=== PATIENT | male | born 1975 | race Caucasian/White ===

== ENCOUNTER 2022-04-15 15:29 | Emergency (ER) | payer OTHER, SELFPAY ==
--- NOTE | ~2022-04-15 | CT_ITS ---
EXAMINATION: CT abdomen pelvis w con DATE: 04/15/2022 18:00 INDICATION: Nausea and vomiting TECHNIQUE: Computed tomography (CT) of the abdomen and pelvis was performed with 100 cc Omnipaque 350 intravenous contrast. The dose-length product was 1316.48 mGy-cm. Automated exposure control and ite rative reconstruction technique were employed. COMPARISON: None. FINDINGS: Lung bases are unremarkable. Heart size normal. No significant pleural or pericardial effus ion. Fatty infiltration of the liver. The spleen, pancreas, adrenal glands and left kidney are unremarkabl e. There is a right renal cyst. There is enhancing gallbladder wall with trace pericholecystic fluid and surrounding pericholecystic infiltration, suspicious for cholecystitis. Small amount of fluid in the right paracolic gutter and pelvis. Nonobstructive bowel gas pattern. No free air or free fluid. N o lymphadenopathy. There is mild mesenteric edema. IMPRESSION: 1. Gallbladder distention with enhancing gallbladder wall and pericholecystic fluid with mild pericho lecystic fatty infiltration. This constellation of findings is suspicious for acute cholecystitis. 2: Small amount of ascites. 3: Fatty infiltration of the liver. Reviewed, dictated and finalized at location A. IMPRESSION: 1. Gallbladder distention with enhancing gallbladder wall and pericholecystic f luid with mild pericholecystic fatty infiltration. This constellation of findin gs is suspicious for acute cholecystitis. 2: Small amount of ascites. 3: Fatty infiltration of the liver.
--- NOTE | ~2022-04-15 | XR_ITS ---
EXAMINATION: XR chest 2V 04/15/2022 16:00 INDICATION: Shortness of breath and weakness. Chest pain. PROCEDURE: 2 view chest COMPARISON: 05/01/2019 FINDINGS: The lungs are clear. The cardiomediastinal silhouette is within normal limits. There are no pleural effusions. There is no pneumothorax suspected. IMPRESSION: 1: NO ACUTE CARDIOPULMONARY DISEASE. Reviewed, dictated and finalized at location A.
[2022-04-15 15:31] VITALS: BP 129/76; PULSE 93; RESP 18; TEMP 36.4; O2SAT 100
--- NOTE | 2022-04-15 15:34 | ECG_ITS ---
Measurements Intervals [place] Rate: 89 P: 45 NE: 143 QRS: -75 QRSD: 102 T: 7 QT: 380 QTc: 464 Interpretive Statements SINUS RHYTHM RSR' V1 INDETERMINATE AXIS PATTERN CONSISTENT WITH PULMONARY DISEASE BORDERLINE ECG NO PREVIOUS ECG AVAILABLE FOR COMPARISON Electronically Signed On 04-16-2022 14:27:59 CDT by Jordon León M.D.
[2022-04-15 15:52] LABS: Basophils Percent Auto 0.3 % (0.2-1.2); Eosinophils Percent Auto 0.1 % (0-4.4); Hematocrit 36.4 % (42.0-52.0); Hemoglobin 12.8 g/dL (14.0-18.0); Immature Granulocyte Absolute 0.04 K/mm3 (0.00-0.031); Immature Granulocyte Percent A 0.4 % (0-0.5); Lymphocytes Absolute Auto 0.89 K/mm3 (0.9-3.2); Lymphocytes Percent Auto 8.4 % (18.3-44.2); Mean Corpuscular HGB Conc 35.2 g/dl (32-36); Mean Corpuscular Hemoglobin 33.5 pg (26-34); Mean Corpuscular Volume 95.3 fl (80-100); Mean Platelet Volume 8.8 fl (7.4-10.4); Monocytes Percent Auto 9.8 % (2.6-8.5); Neutrophils Absolute Auto 8.6 K/mm3 (1.3-6.7); Nucleated Red Blood Cells Absolute Auto 0.1 K/mm3 (0.0-0.012); Nucleated Red Blood Cells Perc 0.6 % (0.0-0.2); Platelet Count Result 328 k/mm3 (150-375); Red Blood Count 3.82 M/mm3 (4.6-6.20); Red Cell Distribution Width 16.9 % (11.5-14.5); White Blood Count 10.6 K/mm3 (4.5-10.0)
[2022-04-15 16:13] LABS: Alanine Aminotransferase 104 U/L (6-50); Albumin Level 4.6 g/dL (3.5-5.1); Alkaline Phosphatase 114 U/L (38-126); Anion Gap 16 mmol/L (8-16); Aspartate Amino Transferase 200 U/L (17-59); Bilirubin,Total 2.3 mg/dL (0.2-1.3); Blood Urea Nitrogen 17 mg/dL (9-20); Calcium 9.6 mg/dL (8.4-10.2); Carbon Dioxide 18 mmol/L (22-30); Chloride 82 mmol/L (98-107); Estimated CRCL calculation 75 ml/min; Estimated Glomerular Filt Rate 60; Glucose 172 mg/dL (65-110); Potassium 4.8 mmol/L (3.4-5.0); Sodium 116 mmol/L (137-145)
[2022-04-15 16:52] VITALS: O2SAT 98; O2SAT 99
--- NOTE | 2022-04-15 17:09 | ED.SOB ---
HPI - SOB/Dyspnea General Chief Complaint: Shortness of Breath/Dyspnea Stated Complaint: SOB Time Seen by Provider: 04/15/22 16:52 History of Present Illness HPI Narrative: This is a 47-year-old male with past medical history of squamous cell carcinoma of the head and neck, presenting the emergency department complaining of persistent fatigue and nausea vomiting. He states for the past couple of days he has had multiple episodes of vomiting this with both food and fluids. He denies fevers. He complains of bandlike pain across the upper abdomen, described as cramping, 3 out of 10, not radiating. Related Data Allergies Allergy/AdvReac Type Severity Reaction Status Date / Time No Known Allergies Allergy Unverified 04/15/22 16:54 Review of Systems Review of Systems: CONSTITUTIONAL: Denies fever, chills, or sweats. Diffuse weakness EYES: Denies visual changes, redness, or discharge. ENT: Denies rhinorrhea, congestion, sore throat, or otalgia. CARDIOVASCULAR: Denies chest pain, palpitations, or edema. RESPIRATORY: Denies cough or dyspnea. GASTROINTESTINAL: mild abdominal pain, nausea and vomiting, Denies diarrhea GENITOURINARY: Denies dysuria or hematuria. SKIN: Denies rash or itching. MUSCULOSKELETAL: Denies back pain, joint pain, or myalgia. NEUROLOGIC: Denies headache, numbness, dizziness, or weakness. PSYCHIATRIC: Denies anxiety or depression. Course Course Emergency Course: 17:45 - Patient's sodium 116. Prior labs are not available for comparison. Discussed recommendation for admission for gradual sodium correction and evaluation for bowel obstruction. The patient is politely adamant that he will not stay. He states he has been hyponatremic in the past and understands the risk of , coma and arrhythmia. Will obtain CT to evaluate for bowel obstruction and advised patient further. 18:20 - CT is concerning for acute cholecystitis. There is no changes concerning for obstructive process. Repeat examination is negative for Weiss's sign. Discussed findings with the patient. He agrees to IV fluids but refuses to stay. Discussed return emergency precautions including signs/symptoms concerning for severe hyponatremia, ascending cholangitis, and sepsis. Patient voiced understanding and is comfortable with the plan. All questions answered to his satisfaction. Vital Signs Vital signs: Vital Signs Temperature 97.5 F L 04/15/22 15:31 Pulse Rate 93 04/15/22 15:31 Respiratory Rate 18 04/15/22 15:31 Blood Pressure 129/76 04/15/22 15:31 Pulse Oximetry 100 04/15/22 15:31 Oxygen Delivery Room Air 04/15/22 15:31 Temperature 97.5 F L 04/15/22 15:31 Pulse Rate 88 04/15/22 19:29 Respiratory Rate 18 04/15/22 19:29 Blood Pressure 104/71 04/15/22 19:29 Pulse Oximetry 99 04/15/22 19:29 Oxygen Delivery Room Air 04/15/22 16:52 MDM - SOB/Dyspnea MDM Narrative Medical decision making narrative: Plan: Labs, IV fluids, imaging, reassess Differential Diagnosis Differential diagnosis: Likely other (Metabolic abnormality, bowel obstruction, pancreatitis, cholecystitis, other) Lab Data Result diagrams: 04/15/22 15:44 04/15/22 15:44 Labs: Lab Results 04/15/22 04/15/22 04/15/22 Range/Units 15:44 15:44 15:44 WBC 10.6 H (4.5-10.0) K/mm3 RBC 3.82 L (4.6-6.20) M/mm3 Hgb 12.8 L (14.0-18.0) g/dL Hct 36.4 L (42.0-52.0) % MCV 95.3 (80-100) fl MCH 33.5 (26-34) pg MCHC 35.2 (32-36) g/dl RDW 16.9 H (11.5-14.5) % Plt Count 328 (150-375) k/mm3 MPV 8.8 (7.4-10.4) fl Immature Gran % (Auto) 0.4 (0-0.5) % Neut % (Auto) 81.0 H (45.5-73.1) % Lymph % (Auto) 8.4 L (18.3-44.2) % [place] % (Auto) 9.8 H (2.6-8.5) % Eos % (Auto) 0.1 (0-4.4) % Baso % (Auto) 0.3 (0.2-1.2) % Lymph # (Auto) 0.89 L (0.9-3.2) K/mm3 [place] # (Auto) 1.0 H (0.1-0.6) K/mm3 Eos # (Auto) 0.0 (0-0.3) K/mm3 Baso # (Auto) 0.0
[2022-04-15] MEDS: SODIUM CHLORIDE 0.9% IV 1,000 ML 999 ML IV CONT (18:33)
[2022-04-15 18:35] VITALS: BP 111/65; PULSE 89; RESP 18; O2SAT 98
[2022-04-15 18:54] LABS: Lipase 371 U/L (23-300)
[2022-04-15 19:29] VITALS: BP 104/71; PULSE 88; RESP 18; O2SAT 99
== END 2022-04-15 20:00 | disposition home or self-care (01) ==
PROVIDERS: Emergency Medicine; Emergency Provider Preventive Medicine Aerospace Medicine; PCP Internal Medicine
DX: E87.1 Hypo-osmolality and hyponatremia (principal); R11.10 Vomiting, unspecified; R10.9 Unspecified abdominal pain; R94.31 Abnormal electrocardiogram [ECG] [EKG]; K76.0 Fatty (change of) liver, not elsewhere classified; R93.2 Abnormal findings on diagnostic imaging of liver and biliary tract
CPT/HCPCS: 36415; 71046; 74177; 80053; 83690; 85025; 93005; 96360; 99284; J7030; Q9967

== ENCOUNTER 2022-04-16 20:05 | Inpatient (IN) | payer OTHER, SELFPAY ==
[2022-04-16] VITALS (7 sets, daily range): BP systolic 90–128; BP diastolic 58–71; PULSE 83–88; RESP 16–24; TEMP 36.7; O2SAT 95–100
--- NOTE | ~2022-04-16 | MR_ITS ---
EXAMINATION: MR MRCP wo/w con/w 3D wo ind DATE: 04/17/2022 12:23 INDICATION: Elevated liver function tests TECHNIQUE: Magnetic resonance imaging (MRI) of the abdomen was performed without intravenous contrast . Patient was unable to tolerate the postcontrast or MRCP sequences. Sequences included axial coronal T2-weighted SS-FSE ARC, coronal T2-weighted 2D FS FIESTA, Water:Coronal LAVA-Flex, axial 3D DualEcho , axial DWI B=600 , Axial SSFSE-IR COMPARISON: CT, 04/15/2022 CONTRAST: None FINDINGS: ABDOMEN MRI: There is loss of hepatic parenchymal signal on opposed phase imaging, consistent with he patic steatosis. The gallbladder is distended and contains multiple stones. There is mild wall thicke demarco of the gallbladder now small amount of pericholecystic fluid. The spleen, pancreas, and adrenal glands are normal. Cysts of the kidneys measure up to 4.4 cm on the right. No pathologically enlarged abdominal lymph nodes are identified. There are no dilated loops of bowel. No intrahepatic or extrah epatic biliary dilatation is seen. There is no definite stone or stricture of the common bile duct. T he pancreatic duct appears normal in course and caliber. ABDOMEN MRCP: Not performed due to patient condition. IMPRESSION: 1. Findings consistent with acute cholecystitis. No intrahepatic or extrahepatic biliary dilatation, stone, or stricture identified although sensitivity limited by incomplete examination. Reviewed, dictated and finalized at location A. IMPRESSION: 1. Findings consistent with acute cholecystitis. No intrahepatic or extrahepati c biliary dilatation, stone, or stricture identified although sensitivity limit ed by incomplete examination.
--- NOTE | ~2022-04-16 | XR_ITS ---
XR abdomen NG/feed tube insert INDICATION: Evaluate NG tube position. TECHNIQUE: Limited KUB perform for evaluating NG tube . COMPARISON: No prior studies for comparison. FINDINGS: NG tube tip in the stomach. Visualized bowel gas pattern is unremarkable. IMPRESSION: 1: NG tube tip in the stomach. Reviewed, dictated and finalized at location B.
--- NOTE | ~2022-04-16 | US_ITS ---
EXAMINATION: US perc cholecystostomy w imag DATE: 04/18/2022 17:53 INDICATION: Acute cholecystitis. TECHNIQUE: The procedure including the risks, benefits, and alternatives was discussed with the patie nt's . Risks discussed included bleeding and infection. Oral and written consent were obtained. A timeout was performed to verify the patient's name, date of , and procedure to be performed. The skin overlying the liver and gallbladder was prepped and draped in usual sterile fashion. Anest hetic was administered with 1% lidocaine subcutaneously. An 8.5 Fr catheter was inserted through akiko er parenchyma into the gallbladder by trocar technique. The metal stiffener and trocar needle were re moved, and the pigtail tip was locked. Bile was aspirated and sent for culture. The catheter was stit ched to the skin with suture. There were no immediate complications. FINDINGS: Ultrasound images demonstrate the catheter within the gallbladder. 3 mL bile was aspirated. IMPRESSION: 1. Successful ultrasound-guided cholecystostomy tube placement. 2. 3 mL bile was sent for aerobic and anaerobic cultures. 3. A catheter cholangiogram may be performed not less than 48 hours after tube placement if clinicall y indicated to assess cystic duct patency. If cholecystectomy is not eventually performed and the inf ectious episode has resolved, the tube may be removed over a guidewire, preferably not less than 3 we eks after placement to allow time for a mature catheter tract to form to prevent bile leakage and per itonitis. Reviewed, dictated and finalized at location A. IMPRESSION: 1. Successful ultrasound-guided cholecystostomy tube placement. 2. 3 mL bile was sent for aerobic and anaerobic cultures. 3. A catheter cholangiogram may be performed not less than 48 hours after tube placement if clinically indicated to assess cystic duct patency. If cholecystec elizabeth is not eventually performed and the infectious episode has resolved, the t ube may be removed over a guidewire, preferably not less than 3 weeks after matthew cement to allow time for a mature catheter tract to form to prevent bile leakag e and peritonitis.
--- NOTE | ~2022-04-16 | XR_ITS ---
EXAMINATION: XR abdomen/kub 1V DATE: 04/18/2022 17:23 INDICATION: Acute cholecystitis. TECHNIQUE: A supine view of the abdomen was obtained. COMPARISON: CT abdomen and pelvis 04/15/2022 FINDINGS: The lower abdomen is excluded. There are no dilated loops of bowel. There is a pigtail cath eter in the gallbladder. Contrast injected into the pigtail catheter opacifies the gallbladder, which shows filling defects, consistent with gallstones. The nasogastric tube tip is in the stomach. IMPRESSION: 1. Percutaneous cholecystostomy tube in expected position. 2. Cholelithiasis. Reviewed, dictated and finalized at location A.
--- NOTE | ~2022-04-16 | XR_ITS ---
EXAMINATION: XR chest 1V portable DATE: 04/19/2022 05:58 INDICATION: Respiratory failure TECHNIQUE: AP view of the chest was obtained.. COMPARISON: Chest radiograph dated 04/18/2022 FINDINGS: Endotracheal tube tip 4 cm above the marcell. Nasogastric tube and some injected oral contrast materia l within the stomach. Increased airspace opacities in the bilateral lower lung zones, left greater than right. Possible sma ll bilateral pleural effusions. No pneumothorax. The cardiomediastinal silhouette is normal. 2 clips at the base of the neck. IMPRESSION: 1. Increasing opacities at the bilateral lower lung zones, left greater than right which could repres ent atelectasis and/or pneumonia possibly with small pleural effusions. Reviewed, dictated and finalized at location A. IMPRESSION: 1. Increasing opacities at the bilateral lower lung zones, left greater than ri ght which could represent atelectasis and/or pneumonia possibly with small pleu ral effusions.
--- NOTE | ~2022-04-16 | XR_ITS ---
XR chest ET placement 04/18/2022 15:57 Indication: Respiratory distress Procedure: AP portable chest Comparison: Comparison to multiple prior studies sequentially, with oldest reviewed study dated 02/2017. Findings: Endotracheal tube tip 4.3 cm above the marcell. Heart size normal. Diffuse bilateral airspac e disease. No pleural effusion or pneumothorax. NG tube in the stomach. Impression: 1: Diffuse bilateral airspace disease may represent edema or pneumonia. Reviewed, dictated and finalized at location B. Impression: 1: Diffuse bilateral airspace disease may represent edema or pneumonia.
--- NOTE | 2022-04-16 20:20 | ED.RECABL ---
HPI - Recheck/Abnormal Lab/Rx General Chief Complaint: Recheck/Abnormal Lab/Rx Stated Complaint: dehydration Time Seen by Provider: 04/16/22 20:15 History of Present Illness HPI narrative: This is a 47-year-old male, who returns to the emergency department with continued vomiting. He was here yesterday found to be hyponatremic to 116. He states he has had a bowel movement and vomited once today without blood. He still complains of generalized weakness without visual change/loss or focal weakness. He continues to deny abdominal pain. Related Data Home Medications Medication Instructions Recorded Confirmed albuterol sulfate 90 mcg/actuation inhalation 04/16/22 aerosol inhaler atenolol 25 mg tablet mg 04/16/22 buspirone 15 mg tablet mg PRN Anxiety 04/16/22 04/16/22 gabapentin 100 mg capsule mg 04/16/22 oxycodone 5 mg tablet mg 04/16/22 sildenafil (pulm.hypertension) 20 mg PRN Sexual Activity 04/16/22 04/16/22 mg tablet Allergies Allergy/AdvReac Type Severity Reaction Status Date / Time No Known Allergies Allergy Verified 04/16/22 20:16 Review of Systems Review of Systems: CONSTITUTIONAL: Denies fever, chills, or sweats. EYES: Denies visual changes, redness, or discharge. ENT: Denies rhinorrhea, congestion, sore throat, or otalgia. CARDIOVASCULAR: Denies chest pain, palpitations, or edema. RESPIRATORY: Denies cough or dyspnea. GASTROINTESTINAL: vomiting Denies abdominal pain, nausea, or diarrhea. GENITOURINARY: Denies dysuria or hematuria. SKIN: Denies rash or itching. MUSCULOSKELETAL: Denies back pain, joint pain, or myalgia. NEUROLOGIC: Denies headache, numbness, dizziness, or weakness. PSYCHIATRIC: Denies anxiety or depression. Exam Narrative: GENERAL: Well-developed, well-nourished, appears uncomfortable HEAD: Normocephalic, atraumatic. EYES: PERRLA and EOMI. ENT: Nares clear, no rhinorrhea or epistaxis. Mucous membranes dry. Oropharynx without tonsillar hypertrophy exudate or other lesions. NECK: Supple. No adenopathy or masses. No carotid bruits or JVD CHEST: Clear to auscultation. No respiratory distress. No wheezes rales or rhonchi HEART: Regular rate and rhythm. No murmur heard. Normal peripheral pulses. ABDOMEN: Soft, nontender, nondistended, normal active bowel sounds. EXTREMITIES: Normal range of motion. No edema. SKIN: Warm, dry, no rash. NEURO: No focal deficits. Alert and oriented x3. PSYCH: Normal mood and affect. Course Course Emergency Course: 21:25 - Patient's serum sodium 114. Considering his ongoing vomiting I suspect severe hyponatremia. Will treat with a 150mL bolus of 3% saline. Will discuss patient with second officer and hospitalist for admission. 22:18 - Discussed patient with second officer, Dr. Haro who recommended nephrology consult and admission to IM U. Discussed patient with Dr. Hall, who recommends BMP at midnight with holding of additional fluids until repeat sodium in available. 22:20 - Discussed patient with Dr. Callahan who accepts admission to IMU. Vital Signs Vital signs: Vital Signs Temperature 98.1 F 04/16/22 20:06 Pulse Rate 88 04/16/22 20:06 Respiratory Rate 16 04/16/22 20:06 Blood Pressure 128/71 04/16/22 20:06 Pulse Oximetry 96 04/16/22 20:06 Temperature 98.1 F 04/16/22 20:06 Pulse Rate 83 04/16/22 22:33 Respiratory Rate 22 H 04/16/22 22:33 Blood Pressure 90/58 L 04/16/22 22:33 Pulse Oximetry 97 04/16/22 22:33 MDM - Recheck/Abnormal Lab/Rx MDM Narrative Medical decision making narrative: Plan: Labs, hypertonic saline, anticipate admission to ICU Differential Diagnosis Differential diagnosis: Likely other (Hyponatremia, metabolic abnormality, LELSY, other) Lab Data Result diagrams: 04/16/22 20:22 04/16/22 20:22 Labs: Lab Results 04/16/22 04/16/22 Range/Units 20:22 20:22 WBC 12.2 H (4.5-10.0) K/mm3 RBC 3.79 L (4.6-6.20) M/mm3 Hgb 12.6 L (14.0-18.0) g/dL Hct
[2022-04-16 20:29] LABS: Basophils Percent Auto 0.2 % (0.2-1.2); Hematocrit 36.3 % (42.0-52.0); Hemoglobin 12.6 g/dL (14.0-18.0); Immature Granulocyte Absolute 0.09 K/mm3 (0.00-0.031); Immature Granulocyte Percent A 0.7 % (0-0.5); Lymphocytes Absolute Auto 0.83 K/mm3 (0.9-3.2); Lymphocytes Percent Auto 6.8 % (18.3-44.2); Mean Corpuscular HGB Conc 34.7 g/dl (32-36); Mean Corpuscular Hemoglobin 33.2 pg (26-34); Mean Corpuscular Volume 95.8 fl (80-100); Mean Platelet Volume 9.5 fl (7.4-10.4); Monocytes Absolute Auto 0.9 K/mm3 (0.1-0.6); Monocytes Percent Auto 7.6 % (2.6-8.5); Neutrophils Absolute Auto 10.3 K/mm3 (1.3-6.7); Neutrophils Percent Auto 84.7 % (45.5-73.1); Nucleated Red Blood Cells Absolute Auto 0.2 K/mm3 (0.0-0.012); Nucleated Red Blood Cells Perc 1.7 % (0.0-0.2); Platelet Count Result 350 k/mm3 (150-375); Red Blood Count 3.79 M/mm3 (4.6-6.20); Red Cell Distribution Width 16.8 % (11.5-14.5); White Blood Count 12.2 K/mm3 (4.5-10.0)
[2022-04-16 20:55] LABS: Alanine Aminotransferase 378 U/L (6-50); Albumin Level 4.5 g/dL (3.5-5.1); Alkaline Phosphatase 103 U/L (38-126); Anion Gap 20 mmol/L (8-16); Aspartate Amino Transferase 602 U/L (17-59); Bilirubin,Total 2.9 mg/dL (0.2-1.3); Blood Urea Nitrogen 32 mg/dL (9-20); Calcium 9.4 mg/dL (8.4-10.2); Carbon Dioxide 13 mmol/L (22-30); Chloride 81 mmol/L (98-107); Estimated CRCL calculation 56 ml/min; Estimated Glomerular Filt Rate 41; Glucose 182 mg/dL (65-110); Potassium 4.8 mmol/L (3.4-5.0); Sodium 114 mmol/L (137-145)
--- NOTE | 2022-04-16 21:37 | PM.IMHP ---
H&P: HPI History of Present Illness Date/Time: 04/16/22 21:37 Chief Complaint: Nausea and vomiting. Narrative: This is a 47-year-old male with past medical history significant for head and neck carcinoma, status post chemotherapy, radiation, resection with myocutaneous flap reconstruction, tobacco dependence patient is a current everyday smoker. patient presented to emergency room for a 2nd time prior to this was the day before due to nausea and vomiting for the last 2-3 days or so with generalized body aches and pains feeling very fatigue and tired unable to keep anything down patient is limited to only liquids diet he is unable to eat any solid except for pills after his head and neck surgery. patient has had chills denies any cough or sputum production or shortness of breath, no PND, no orthopnea, no leg swelling, no abdominal pain. preliminary workup was significant for sodium of 114 chloride 83 creatinine 1.9 BUN 35 white count 13510, CT of abdomen and pelvis was significant for: 1. Gallbladder distention with enhancing gallbladder wall and pericholecystic fluid with mild pericholecystic fatty infiltration. This constellation of findings is suspicious for acute cholecystitis. 2: Small amount of ascites. 3: Fatty infiltration of the liver. liver enzymes AST/ ALT 602 /378 total bili 2.9 patient is been admitted for further evaluation management and treatment. Review of Systems Review of Systems: Nausea, vomiting, body aches and pains, generalized malaise, fatigue. Constitutional: Constitutional: Reports body ache(s), Reports chills, Reports fatigue, Denies fever(s), Denies malaise, Denies night sweats and Denies weakness Eyes: Eyes: Denies change in vision ENT: Reports dysphagia ( to solids), Denies vertigo, Denies dizziness and Denies odynophagia Cardiovascular: Cardiovascular: Denies irregular heart rhythm, Denies lightheadedness, Denies radiating jaw, neck or arm pain, Denies palpitations, Denies dyspnea and Denies dyspnea on exertion Respiratory: Respiratory: Denies chest congestion, Denies cough, Denies excessive phlegm production, Denies pain on inspiration and Denies dyspnea Gastrointestinal: Gastrointestinal: Denies abdominal pain, Denies dyspepsia, Denies heartburn, Denies diarrhea, Reports nausea and Reports vomiting Genitourinary: Genitourinary: Denies dysuria and Denies flank pain Musculoskeletal: Musculoskeletal: Reports myalgias Integumentary/Breasts: Skin/Breast: Denies rash Neurologic: Denies focal weakness and Denies Sensory deficit (Neuro) Psychiatric: Psychiatric: Reports no additional psychiatric complaints and Reports as per HPI Endocrine: Endocrine: Denies cold intolerance, Denies fatigue, Denies flushing, Denies heat intolerance, Denies polyphagia, Denies polydipsia and Denies palpitations Hematologic/Lymphatic: Hematologic/Lymphatic: Reports no additional hematologic/lymphatic complaints and Reports as per HPI Allergic/Immunologic: Allergic/Immunologic: Reports no additional allergic/immunologic complaints and Reports as per HPI PMFSH Social History Social History Smoking packs per day: 0.5 Smoking cigarettes per day: 10.0 Smoking status: Current every day smoker Tobacco type: cigarettes Alcohol intake: never Substance use: never Spiritual care concerns: No Meds Home Medications and Allergies Home Medications Medication Instructions Recorded Confirmed Type albuterol sulfate 90 mcg/actuation 2 puff inhalation QID PRN 04/16/22 04/17/22 History aerosol inhaler Shortness Of Breath atenolol 25 mg tablet 25 mg PO HS 04/16/22 04/17/22 History buspirone 15 mg tablet 15 mg PO BID PRN Anxiety 04/16/22 04/17/22 History gabapentin 100 mg capsule 100 mg PO Q8H 04/16/22 04/17/22 History oxycodone 5 mg tablet 5 mg PO Q4H PRN Pain 04/16/22 04/17/22 History Allergies Allergy/AdvReac Type Severity Reaction Status Date / Time No Known Allergies Allergy Verified 04/16
[2022-04-16] MEDS: SODIUM CHLORIDE 3% 150 ML 60 ML IV CONT (21:56)
[2022-04-17] VITALS (22 sets, daily range): BP systolic 94–102; BP diastolic 38–60; PULSE 61–85; RESP 14–22; TEMP 36.4–36.6; O2SAT 94–100; BMI 33.9
--- NOTE | 2022-04-17 | PC.NURSE ---
This patient, Travis Kirkpatrick, was admitted to IMU Room 203-01. Patient/family oriented to hospital policies and general routines including ID bracelet, bed and alarms, visiting hours, pain management, procedures, bathroom and other care routines, personal items, smoking policy, room service/diet, and visiting hours. Information on how to activate the Rapid Response Team has been discussed. Patient/Family are encouraged to report perceived risks to care and to ask questions if they do not understand what they are told or what they should do.
[2022-04-17] MEDS: GABAPENTIN 100 MG CAPSULE PO ×4 (00:46→20:40)
[2022-04-17] MEDS: oxyCODONE HCL (*CRX) 5 MG TAB IR PO ×5 (00:46→22:41)
[2022-04-17 00:57] LABS: Anion Gap 18 mmol/L (8-16); Blood Urea Nitrogen 35 mg/dL (9-20); Carbon Dioxide 13 mmol/L (22-30); Chloride 83 mmol/L (98-107); Estimated CRCL calculation 53 ml/min; Estimated Glomerular Filt Rate 39; Glucose 172 mg/dL (65-110); Potassium 5.2 mmol/L (3.4-5.0); Sodium 114 mmol/L (137-145)
[2022-04-17] MEDS: ALBUTEROL SULFATE (*SP) AEROSOL 1 PUFF 2 PUFF INHALATION ×3 (00:57→22:51)
[2022-04-17] MEDS: AMPICILLIN SULB 3 GM/NS 100 ML 3 GM/100 ML VIAL IVPB ×4 (02:39→20:40)
[2022-04-17 05:13] LABS: Anion Gap 17 mmol/L (8-16); Blood Urea Nitrogen 39 mg/dL (9-20); Carbon Dioxide 13 mmol/L (22-30); Chloride 83 mmol/L (98-107); Estimated CRCL calculation 48 ml/min; Estimated Glomerular Filt Rate 34; Glucose 176 mg/dL (65-110); Potassium 5.3 mmol/L (3.4-5.0); Sodium 113 mmol/L (137-145)
[2022-04-17] MEDS: SODIUM CHLORIDE 3% 270 ML 90 ML IV CONT (06:27)
[2022-04-17 06:34] LABS: Free T4 Free Thyroxine Reflex 1.56 ng/dL (0.78-2.19)
[2022-04-17 07:30] LABS: Total Triiodothyronine (T3) 0.57 NG/ML (0.97-1.69)
[2022-04-17] MEDS: NICOTINE (*PBKC) 21 MG PATCH 1 PATCH TRANSDERM (08:06)
--- NOTE | 2022-04-17 08:15 | PM.CNNEP ---
Assessment and Plan Assessment and plan (1) Hyponatremia: Code(s): E87.1 - Hypo-osmolality and hyponatremia Status: Acute Plan 1. Hyponatremia. The patient's sodium is very low. This is happened before at [facility] at some point after he had his surgery. Sodium levels since then are not available. We will try to get these records. The patient has several risk factors for hyponatremia. He had head and neck cancer although this is in remission. He is taking narcotics every day for his chronic pain. He is on a high liquid diet because he cannot swallow solids. He looks like he might be dehydrated. There other conditions that can do this as well. 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 His chest x-ray is negative. He continues to smoke will get a CT of the brain He was symptomatic last night apparently. So he received 3% saline. He is finishing that infusion now. We will check another sodium level at 10:00 a.m. and see how the number looks. Will get a TSH, cortisol, osmolality is which have already been ordered, and urine sodium. Will also get a urinalysis. will check a CT of the brain. Fluid restriction is going to be difficult because this is the only way he gets his calories. Will follow this along as we go. 2. Patient has urinated in about 12 hours. Will check a bladder scan and straight cath if the volume of the urine is greater than 200. 3. Patient has ENT cancer 4. Patient has a history of DVTs. He has no swelling 5. He has chronic pain History of Present Illness Reason for Consult Consult date: 04/17/22 Chief Complaint Chief complaint: Hyponatremia History of Present Illness Narrative: Travis is a very pleasant 47-year-old gentleman who has multiple medical problems including chronic cigarette use, at head and neck cancer 3 years ago treated with surgery and radiation therapy who which is in remission, chronic pain from the cancer requiring narcotics every day, history of hyponatremia in the past at [facility] but does not know what his sodiums have been running lately, history of DVTs also at [facility] less than 3 years ago, chronic cough from the cancer he says, He was in his usual state of health until about 3 weeks ago when he developed nausea and vomiting. He just tolerated it for the 1st couple of weeks as he was able to eat some felt like he was not getting too dehydrated. In the last week things got worse and he was able to eat less and so he came to the emergency room because it was getting better. By ?eating ?he means drinking smoothies because he can not swallow solid foods. He has been drinking plenty of fluid as well. He had a little bit of diarrhea for the last day but otherwise no diarrhea. No blood. No fevers or chills. He always has a cough because of his cancer he says and he also still smokes. He does not have any belly pain. He said he is a little short of breath and his heart lb when he tries to exert the last week or 2. He feels like he is dehydrated. Because of these symptoms he came to the emergency room. In the ER he was found to be very hyponatremic. He decided not to stay in the hospital on his 1st ER visit which was 2 days ago at about 6:00 p.m. the patient continued to have nausea and vomiting and so came to the ER again yesterday evening. His sodium was once again low. Patient was given 3% saline last night by the emergency room doctor but the saline did not change. The called Dr. Hall for the consult this morning and he prescribed another round of 3% saline. Currently the patient feels better than he did yesterday evening. He still a little bit nauseated. He still smokes and he does not drink. Review of Systems Constitutional: Constitutional: Reports no additional constitutional complaints Eyes: Eyes: Reports no additional eye complaints ENT: Reports system reviewed and
[2022-04-17] MEDS: IPRATROPIUM BR 0.02% INH SOLN 0.5 MG/2.5 ML VIAL INHALATION (08:30)
[2022-04-17] MEDS: ALBUTEROL SULFATE NEB 2.5 MG/3 ML INH INHALATION (08:30)
[2022-04-17] MEDS: ONDANSETRON INJ 4 MG/2 ML VIAL IV PUSH ×2 (08:32→13:54)
--- NOTE | 2022-04-17 08:43 | PM.IMPN ---
Progress Note: A&P Assessment and Plan (1) Hyponatremia: Code(s): E87.1 - Hypo-osmolality and hyponatremia Status: Acute (2) Vomiting: Code(s): R11.10 - Vomiting, unspecified Status: Acute (3) LESLY (acute kidney injury): Code(s): N17.9 - Acute kidney failure, unspecified Status: Acute (4) Acute cholecystitis: Code(s): K81.0 - Acute cholecystitis Status: Acute (5) Abnormal LFTs: Code(s): R79.89 - Other specified abnormal findings of blood chemistry Status: Acute (6) Head and neck cancer: Code(s): C76.0 - Malignant neoplasm of head, face and neck Status: Acute (7) Tobacco dependence: Code(s): F17.200 - Nicotine dependence, unspecified, uncomplicated Status: Acute Plan # nausea vomiting CT abdomen revealed gallbladder distension with enhancing gallbladder wall and pericholecystic fluid with mild cold pericholecystic fatty infiltration. Constellation of findings suspicious for acute cholecystitis. There was also small amount of ascites and fatty infiltration of the liver. Elevated liver enzymes with AST/ ALT 600 to/ 378 with total bilirubin of 2.9. Alkaline phosphatase is normal. lipase is elevated as well. Likely need to rule out choledocholithiasis. Will get GI consulted. Could not do right upper quadrant ultrasound as he has been drinking water. Unable to withhold drinking due to extreme dryness of mouth he also will get MRCP further # severe hyponatremia sodium level 114. Likely hypovolemic hyponatremia. Continue IV hydration. Nephrology has been consulted. Serial BMP. TSH mildly elevated at 10.2. Random cortisol 88 Started on 3% saline Nephrology appreciated # acute cholecystitis. Started on Unasyn. General surgery has been consulted. MRCP # abnormal LFTs right upper quadrant ultrasound. Consider GI consult to per quadrant ultrasound to be performed. Will order MRCP # LESLY creatinine 1.9. Likely prerenal azotemia. Continue to monitor nephrology consulted . Baseline creatinine at 0.8 (2018) # metabolic acidosis nephrology consulted # history of head and neck cancer status post resection chemotherapy radiation GI cutaneous flap reconstruction. # abnormal TSH of 10.2. May need recheck. No prior history of hypothyroidism the past # tobacco dependence nicotine patch daily. # DVT prophylaxisHeparin subQ # code status full code Subjective Date/time seen: 04/17/22 08:43 Interval history: HPI:This is a 47-year-old male with past medical history significant for head and neck carcinoma, status post chemotherapy, radiation, resection with myocutaneous flap reconstruction,? tobacco dependence patient is a? current everyday smoker. patient presented to emergency room for a 2nd time prior to this was the day before due to nausea and vomiting for the last 2-3 days or so with generalized body aches and pains feeling very fatigue and tired unable to keep anything down patient is limited to only liquids diet he is unable to eat any solid? except for pills after his head and neck surgery.? patient has had chills denies any cough or sputum production or shortness of breath, no PND, no orthopnea, no leg swelling,? no abdominal pain.? preliminary workup was significant for sodium of 114 chloride 83 creatinine 1.9 BUN 35 white count [id number], CT of abdomen and pelvis was significant for: 1. Gallbladder distention with enhancing gallbladder wall and pericholecystic fluid with mild pericholecystic fatty infiltration. This constellation of findings is suspicious for acute cholecystitis. 2: Small amount of ascites. 3: Fatty infiltration of the liver. ?liver enzymes AST/ ALT 602 /378 total bili 2.9 ?patient is been admitted for further evaluation management and treatment. 04/17/2022 presents with nausea vomiting and generalized body aches. Significant history of head and neck carcinoma status post chemo radiation and resection
[2022-04-17 09:39] LABS: Alanine Aminotransferase 475 U/L (6-50); Albumin Level 4.2 g/dL (3.5-5.1); Alkaline Phosphatase 98 U/L (38-126); Aspartate Amino Transferase 707 U/L (17-59); Bilirubin Direct 0.6 mg/dL (0-0.3); Bilirubin,Total 3.2 mg/dL (0.2-1.3)
[2022-04-17 10:12] LABS: Hepatitis B Surface Antigen Negative (Negative)
[2022-04-17 10:18] LABS: HAV RESULT Negative (Negative); Hepatitis B Core IgM Result Negative (Negative)
[2022-04-17 10:20] LABS: Sodium 115 mmol/L (137-145)
[2022-04-17 10:30] LABS: Hepatitis C Virus Antibody Negative (Negative)
[2022-04-17] MEDS: HEPARIN SODIUM 5,000 UNITS/ML VIAL 5000 UNITS SUB-Q ×2 (11:14→20:40)
[2022-04-17] MEDS: SODIUM CHLORIDE 0.9% IV 1,000 ML 75 ML IV CONT (11:14)
[2022-04-17 11:55] LABS: Appearance Urine Clear (Clear); Bilirubin Urine 2+ (Negative); Color Urine Yellow (Yellow); Glucose Urine UA Negative (Negative); Ketones Urine 1+ mg/dL (Negative); Leukocyte Esterase Ur Negative LEU/UL (NEGATIVE); Nitrate Urine Negative (Negative); Protein Urine 1+ mg/dL (Negative); Specific Grav Ur 1.025 (1.001-1.035); Urobilinogen Urine 0.2 mg/dL (<2.0); pH Urine 5.5 (5.0-9.0)
[2022-04-17 11:56] LABS: Creatinine Urine 232.4 mg/dL; Urea Random Urine 172 MG/DL
[2022-04-17 12:01] LABS: Add Urine Microscopic? YES; Blood Urine Trace-Intact (Negative)
[2022-04-17 12:03] LABS: Bacteria Urine Trace /hpf; Hyaline Casts Urine 50+ /lpf; Mucus Urine Rare /lpf; Squamous Epithelial Cell Urine Rare /hpf (Few); WBC Urine 0-3 /hpf (0-3)
--- NOTE | 2022-04-17 12:25 | PM.CNGS ---
Assessment and Plan Assessment and plan (1) Acute cholecystitis: Code(s): K81.0 - Acute cholecystitis Status: Acute Assessment and Plan: CT abdomen/pelvis shows findings suspicious for acute cholecystitis. No visible gallstones on CT. Mild leukocytosis and elevated LFTs, which trended up slightly today. We will further evaluate for possible choledocholithiasis with an MRCP. Cancel right upper quadrant ultrasound. Will keep NPO for now pending MRCP results. GI has been consulted. Continue IV antibiotics, IV fluids, and analgesics as needed. We discussed treatment options with the patient, and he would prefer to avoid surgery if at all possible. With his current electrolyte imbalance and LESLY, he would be a poor surgical candidate at this time. We will continue to treat this conservatively for now but if he needs intervention may need to consider a percutaneous cholecystostomy tube. (2) Abnormal LFTs: Code(s): R79.89 - Other specified abnormal findings of blood chemistry Status: Acute Assessment and Plan: LFTs trending up slightly since admission. Lipase also minimally elevated on 04/15, will repeat lipase today. Hepatitis panel negative. Fatty liver noted on CT. MRCP to further evaluate an obstructing pathology. GI has been consulted. (3) Hyponatremia: Code(s): E87.1 - Hypo-osmolality and hyponatremia Status: Acute Assessment and Plan: Nephrology managing with 3% NS when appropriate and close monitoring. (4) LESLY (acute kidney injury): Code(s): N17.9 - Acute kidney failure, unspecified Status: Acute Assessment and Plan: Creatinine trending up to 2.1 today. Nephrology consulted. (5) Head and neck cancer: Code(s): C76.0 - Malignant neoplasm of head, face and neck Status: Chronic Assessment and Plan: Treated with surgery and radiation 3 years ago, currently in remission. Only able to tolerate a full liquid diet. (6) Tobacco dependence: Code(s): F17.200 - Nicotine dependence, unspecified, uncomplicated Status: Chronic Assessment and Plan: Encouraged cessation. (7) Obesity (BMI 30-39.9): Code(s): E66.9 - Obesity, unspecified Status: Acute Plan I have discussed the patient's case and plan of care with Dr. Huerta. Thank you for allowing us to see the patient in consultation and we will continue to follow along with you. History of Present Illness Consult details Consult date: 04/17/22 Reason for consult: other (Possible acute cholecystitis) Requesting physician: Jerod Callahan MD Narrative: This is a 47-year-old man with a history of head and neck cancer 3 years ago treated with surgery and radiation therapy currently in remission. He is also a smoker and has multiple medical problems. He requires chronic narcotic use for chronic pain following his cancer treatment. He reports about 3 weeks ago noticing fatigue. He felt the fatigue progressively worsen. He was also noticing intermittent upper abdominal pain worse in the epigastric area that would come and go. He is on a liquid diet due to his previous cancer treatment and reports over the past few he has had a poor appetite. He does believe that his abdominal pain was aggravated by eating/drinking meals. Over the past few days, he also developed nausea and vomited yesterday also reports some diarrhea yesterday. He denies light color stools, but does endorse dark urine over the past 2 days. Denies noticing any jaundice. Due to his progressively worsening symptoms, he presented to the ER for further evaluation. He was found to be severely hyponatremic with a sodium of 116. Labs also showed a white blood cell count of 10,600 and elevated LFTs with a total bilirubin of 2.3. Chest x-ray negative. CT scan of the abdomen and pelvis showed gallbladder distention with enhancing gallbladder wall and pericholecystic fluid, suspicious for acute cholecystitis. The pat
[2022-04-17 12:39] LABS: Sodium Urine Random < 5 meq/L
[2022-04-17 13:09] LABS: Lipase 977 U/L (23-300)
--- NOTE | 2022-04-17 13:32 | PCNSR ---
On 04/17/22, the student, [Carmen Hopson ], provided care and completed [facility] documentation on this patient. I have reviewed the student's documentation and agree with the findings. Edita Nava MS RD LDN
[2022-04-17 17:08] LABS: Sodium 116 mmol/L (137-145)
[2022-04-17 20:47] LABS: Sodium 117 mmol/L (137-145)
[2022-04-17] MEDS: SODIUM CHLORIDE 0.9% IV 1,000 ML 125 ML IV CONT (22:38)
[2022-04-18] VITALS (32 sets, daily range): BP systolic 87–118; BP diastolic 48–62; PULSE 70–87; RESP 17–24; TEMP 34.7–37.7; O2SAT 90–100
[2022-04-18] MEDS: AMPICILLIN SULB 3 GM/NS 100 ML 3 GM/100 ML VIAL IVPB ×2 (02:14→08:43)
[2022-04-18 02:44] LABS: Sodium 117 mmol/L (137-145)
[2022-04-18 05:17] LABS: Basophils Percent Auto 0.2 % (0.2-1.2); Hematocrit 38.4 % (42.0-52.0); Hemoglobin 12.6 g/dL (14.0-18.0); Immature Granulocyte Absolute 0.32 K/mm3 (0.00-0.031); Immature Granulocyte Percent A 1.3 % (0-0.5); Lymphocytes Absolute Auto 0.52 K/mm3 (0.9-3.2); Lymphocytes Percent Auto 2.1 % (18.3-44.2); Mean Corpuscular HGB Conc 32.8 g/dl (32-36); Mean Corpuscular Hemoglobin 34.1 pg (26-34); Mean Corpuscular Volume 104.1 fl (80-100); Monocytes Absolute Auto 1.6 K/mm3 (0.1-0.6); Monocytes Percent Auto 6.5 % (2.6-8.5); Neutrophils Absolute Auto 21.8 K/mm3 (1.3-6.7); Neutrophils Percent Auto 89.9 % (45.5-73.1); Nucleated Red Blood Cells Absolute Auto 0.6 K/mm3 (0.0-0.012); Nucleated Red Blood Cells Perc 2.3 % (0.0-0.2); Platelet Count Result 291 k/mm3 (150-375); Red Blood Count 3.69 M/mm3 (4.6-6.20); Red Cell Distribution Width 17.2 % (11.5-14.5); White Blood Count 24.3 K/mm3 (4.5-10.0)
[2022-04-18 05:32] LABS: Albumin Level 4.4 g/dL (3.5-5.1); Anion Gap 29 mmol/L (8-16); Blood Urea Nitrogen 51 mg/dL (9-20); Calcium 8.6 mg/dL (8.4-10.2); Carbon Dioxide 7 mmol/L (22-30); Chloride 82 mmol/L (98-107); Estimated CRCL calculation 31 ml/min; Estimated Glomerular Filt Rate 20; Glucose 178 mg/dL (65-110); Phosphorus 8.7 mg/dL (2.5-4.5); Potassium 5.6 mmol/L (3.4-5.0); Sodium 118 mmol/L (137-145)
[2022-04-18 05:36] LABS: Bilirubin,Total 5.5 mg/dL (0.2-1.3); Magnesium 2.9 mg/dL (1.6-2.3)
[2022-04-18 06:05] LABS: Alanine Aminotransferase 1160 U/L (6-50)
[2022-04-18] MEDS: oxyCODONE HCL (*CRX) 5 MG TAB IR PO ×2 (06:27→10:17)
[2022-04-18] MEDS: GABAPENTIN 100 MG CAPSULE PO (06:27)
[2022-04-18] MEDS: SODIUM CHLORIDE 0.9% IV 1,000 ML 125 ML IV CONT (06:28)
[2022-04-18 07:01] LABS: Aspartate Amino Transferase 2165 U/L (17-59)
--- NOTE | 2022-04-18 07:47 | PM.PNNEP ---
Progress Note: A&P Assessment and Plan (1) Hyponatremia: Code(s): E87.1 - Hypo-osmolality and hyponatremia Status: Acute Assessment and Plan: The patient's sodium is very low. This is happened before at [place] at some point after he had his surgery. Sodium levels since then are not available. We will try to get these records. The patient has several risk factors for hyponatremia. He had head and neck cancer although this is in remission. He is taking narcotics every day for his chronic pain. He is on a high liquid diet because he cannot swallow solids. He looks like he might be dehydrated. There other conditions that can do this as well. 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 His chest x-ray is negative. He continues to smoke Urine electrolytes show pre renal azotemia. Cortisol level is okay. TSH is mildly high at 10. T4 is normal but T3 is low. Will let hospitalists manage the thyroid. 3% saline did not seem to bring the sodium up very much. At that point the urine sodium was available so the patient was given normal saline overnight. His sodium has corrected from 113-117, a good rate for sodium correction. Will continue the IV fluids. Check another sodium at noon will order a CT of the brain. (2) Vomiting: Code(s): R11.10 - Vomiting, unspecified Status: Acute Assessment and Plan: Surgery saw the patient. He has acute cholecystitis. He is going to get an MRCP. If he receives contrast it should be the new generation (Dotarem) only. still has nausea. WBC is on the rise. ALT is up as well. (3) LESLY (acute kidney injury): Code(s): N17.9 - Acute kidney failure, unspecified Status: Acute Assessment and Plan: The patient has LESLY. Urine electrolytes are pre renal. CT shows no obstruction. Urine sodium is low. So there is a component of dehydration. He received contrast for the CT which may explain the rising creatinine. His creatinine was normal in the ER when he got the contrast. His gallbladder is in issue which may also contribute to his renal failure. Will continue IV fluids surgery will decide about the gallbladder. (4) Head and neck cancer: Code(s): C76.0 - Malignant neoplasm of head, face and neck Status: Chronic Assessment and Plan: No evidence of disease per his oncologists. (5) Tobacco dependence: Code(s): F17.200 - Nicotine dependence, unspecified, uncomplicated Status: Chronic Assessment and Plan: He was smoking up until the time he was admitted. Hopefully he will stop. (6) Chronic pain: Code(s): G89.29 - Other chronic pain Status: Acute Assessment and Plan: He is on routine narcotics at home. Plan above Subjective Date/time seen: 04/18/22 07:47 Interval history: patient still feels poorly. He is fluent and having no twitching or seizures. He still not eating very well. He has pain all over. This all started within the last couple of weeks. He has tingling and burning which started in the toes and fingers yesterday and now is involving hands and feet. Review of Systems Cardiovascular: Cardiovascular: Reports no additional cardiovascular complaints Respiratory: Respiratory: Reports no additional respiratory complaints Gastrointestinal: Gastrointestinal: Reports no additional gastrointestinal complaints Genitourinary: Genitourinary: Reports no additional male genitourinary complaints Exam Narrative: WDWN in NAD skin no rash head ncat lungs clear cor reg no rub abd BS+ nontender and soft ext no edema. Objective Data Vital Signs Vital Signs: Vital Signs - 24 hr 04/17/22 08:31 04/17/22 08:36 04/17/22 08:40 Temperature Pulse Rate 81 81 81 Respiratory Rate 18 16 Blood Pressu
[2022-04-18] MEDS: ALBUTEROL SULFATE (*SP) AEROSOL 1 PUFF 2 PUFF INHALATION (08:30)
[2022-04-18] MEDS: SODIUM ZIRCONIUM CYCLOSILICATE 10 GM POWD.PACK PO (08:43)
[2022-04-18] MEDS: NICOTINE (*PBKC) 21 MG PATCH 1 PATCH TRANSDERM (08:43)
[2022-04-18] MEDS: HEPARIN SODIUM 5,000 UNITS/ML VIAL 5000 UNITS SUB-Q (08:43)
[2022-04-18] MEDS: MORPHINE SULFATE (*CRX) 2 MG/ML INJ IV PUSH (08:50)
[2022-04-18] MEDS: SODIUM BICARBONATE 8.4% 50 MEQ/50 ML SYRINGE 104 MEQ IV PUSH (08:57)
[2022-04-18 09:09] LABS: Lipase 2518 U/L (23-300)
--- NOTE | 2022-04-18 09:25 | PM.PNGS ---
Progress Note: A&P Assessment and Plan (1) Acute cholecystitis: Code(s): K81.0 - Acute cholecystitis Status: Acute Assessment and Plan: will setup for perc cholecystostomy tube given all comorbid conditions, cont abx (2) Abnormal LFTs: Code(s): R79.89 - Other specified abnormal findings of blood chemistry Status: Acute Assessment and Plan: ? etiology, MRCP does not show biliary obstruction, will get GI consult Subjective Subjective Date/Time Seen: 04/18/22 09:25 reports he is hurting all over , some nausea, poor appetite Review of Systems Review of Systems: All systems reviewed & are unremarkable except as noted in HPI and below Exam Const: General: cooperative, acute distress mild, ill appearing, tired appearing and uncomfortable Resp: Auscultation: clear to auscultation bilaterally Cardio: Rate: regular rate Rhythm: regular rhythm GI: Inspection: normal to inspection and distended GI Palp: Yes abdominal tenderness, Yes Soft to palpation, Yes Tenderness to palpation present (GI), No Guarding due to palpation present (GI) and No Rigid due to palpation Objective Data Vital Signs Vital Signs: Vital Signs - 24 hr 04/17/22 10:00 04/17/22 12:00 04/17/22 12:46 Temperature 36.6 C Pulse Rate 83 83 81 Respiratory Rate 16 20 Blood Pressure 94/53 L Pulse Oximetry 96 97 Oxygen Delivery Room Air 04/17/22 14:00 04/17/22 16:00 04/17/22 16:00 Temperature Pulse Rate 78 78 79 Respiratory Rate 20 Blood Pressure Pulse Oximetry 97 Oxygen Delivery Room Air 04/17/22 16:23 04/17/22 18:00 04/17/22 19:58 Temperature 36.6 C Pulse Rate 78 79 61 Respiratory Rate 20 Blood Pressure 99/54 L Pulse Oximetry 100 99 Oxygen Delivery Room Air 04/17/22 20:00 04/17/22 20:00 04/17/22 20:00 Temperature 36.4 C Pulse Rate 79 79 79 Respiratory Rate 20 20 Blood Pressure 102/56 L Pulse Oximetry 98 98 Oxygen Delivery Room Air 04/17/22 21:54 04/17/22 23:49 04/18/22 00:00 Temperature 36.5 C Pulse Rate 80 78 78 Respiratory Rate 20 Blood Pressure 99/54 L Pulse Oximetry 100 Oxygen Delivery 04/18/22 00:00 04/18/22 02:00 04/18/22 04:00 Temperature Pulse Rate 78 77 75 Respiratory Rate 20 Blood Pressure Pulse Oximetry 100 Oxygen Delivery Room Air 04/18/22 04:00 04/18/22 04:00 04/18/22 05:44 Temperature 36.4 C L Pulse Rate 75 70 73 Respiratory Rate 20 20 Blood Pressure 118/59 L Pulse Oximetry 100 100 Oxygen Delivery Room Air 04/18/22 08:00 04/18/22 08:00 Temperature 36.2 C L Pulse Rate 73 73 Respiratory Rate 20 20 Blood Pressure 102/54 L Pulse Oximetry 100 Oxygen Delivery Room Air Intake/Output Intake/Output: Intake & Output 04/15/22 04/16/22 04/17/22 04/18/22 23:59 23:59 23:59 23:59 Intake Total 1850 1100 Output Total 200 350 Balance 1650 750 Meds/Results Medications: Active Medications Generic Name Dose Route Start Last Admin Trade Name Freq PRN Reason Stop Dose Admin Albuterol 2 puff 04/17/22 00:30 04/17/22 14:05 Albuterol Sulfate (*Sp) Aerosol 1 Puff INHALATION 2 puff QIDRT PRN Administration Shortness Of Breath Albuterol 2 puff 04/17/22 20:00 04/18/22 08:30 Albuterol Sulfate (*Sp) Aerosol 1 Puff INHALATION 2 puff Q6HRT EMANUEL Administration Atenolol 25 mg 04/17/22 00:35 04/17/22 21:46 Atenolol 25 Mg Tablet PO Not Given HS EMANUEL Buspirone HCl 15 mg 04/17/22 00:25 Buspirone Hcl 5 Mg Tablet PO BID PRN Anxiety Gabapentin 100 mg 04/17/22 00:25 04/18/22 06:27 Gabapentin 100 Mg Capsule PO 100 mg Q8HR EMANUEL Administration Heparin Sodium (Porcine) 5,000 units 04/17/22 09:00 04/18/22 08:43 Heparin Sodium 5,000 Units/Ml Vial SUB-Q 5,000 units Q12HR EMANUEL Administration Ampicillin Sodium/Sulbactam Sodium 3 gm in 100 mls @ 200 mls/hr 04/17/22 02:00 04/18/22 08:43 Unasyn 3 Gm/Ns 100 Ml IVPB 2
[2022-04-18] MEDS: SODIUM BICARBONATE 8.4% 150 MEQ in DEXTROSE 5% 1,000 ML 950 ML 125 MEQ IV CONT ×2 (10:09→20:04)
[2022-04-18] MEDS: ONDANSETRON INJ 4 MG/2 ML VIAL IV PUSH (10:12)
[2022-04-18 10:41] LABS: INR 3.8; Prothrombin Time 36.4 Seconds (11.1-14.7)
[2022-04-18 11:55] LABS: Sodium 118 mmol/L (137-145)
[2022-04-18 12:07] LABS: Anion Gap 30 mmol/L (8-16); Blood Urea Nitrogen 53 mg/dL (9-20); Calcium 8.2 mg/dL (8.4-10.2); Carbon Dioxide 7 mmol/L (22-30); Chloride 81 mmol/L (98-107); Estimated CRCL calculation 28 ml/min; Estimated Glomerular Filt Rate 18; Glucose 180 mg/dL (65-110); Potassium 5.4 mmol/L (3.4-5.0)
[2022-04-18 12:33] LABS: Ammonia 10 umol/L (9-30)
[2022-04-18] MEDS: PHYTONADIONE ADULT INJ 10 MG in DEXTROSE 5% IN WATER 50 ML 100 MG IVPB (12:46)
[2022-04-18] MEDS: SODIUM CHLORIDE 3% 300 ML 100 ML IVPB (12:58)
--- NOTE | 2022-04-18 13:00 | PC.NURSE ---
This patient, Travis Kirkpatrick, was transferred to [ICU 4] on 04/18/22 at 1253. Personal belongings sent with patient. Report given to [MARGARITO Cartagena]. Appropriate documentation sent with patient.
[2022-04-18] MEDS: SODIUM BICARBONATE 8.4% 50 MEQ/50 ML SYRINGE 100 MEQ IV PUSH ×2 (13:15→16:14)
[2022-04-18] MEDS: HYDROmorphone HCL INJ (*CRX) 1 MG/ML SYR 0.5 MG IV PUSH (13:40)
--- NOTE | 2022-04-18 13:47 | WPDPROCEDUR ---
Procedures Central Line Placement Right Femoral: Central Line Date: 04/18/22 Central Line Time: 13:40 Discussed w/ the patient/family/POA,the placement of a central venous catheter, including its clinical necessity/indication & associated potential risks, benifits and alternatives.: Yes The patient/family/POA understand(s) and acknowledge(s) the need to proceed with central venous catheter insertion as an important element of the patient's clinical management.: Yes Consent: I have discussed with the patient and/or surrogate, the non-emergent placement of a central venous catheter, including its clinical necessity/indication and associated potential risks and complications. The patient and/or surrogate understand(s) and acknowledge(s) the need to proceed with central venous catheter insertion as an important element of the patient's clinical management. Time Out Performed: Yes Patient Position: supine Patient placed on monitor/pulse ox: Yes Provider Prep: mask, sterile gown, sterile gloves, Max. sterile barrier precautions, cap and hand hygiene with conventional soap/water or alcohol based hand rub Central line prep: 2% Chlorhexidine scrub Local anesthesia used: lidocaine 1% Amount of anesthesia used (ml): 3 Sterile US Technique with sterile gel/sterile probe covers: Yes Central line lumen inserted: triple [place]: 12 Length (cm): 16 Depth of Insertion (cm): 16 Post Procedure: sutured in place, good blood return, all ports aspirated, flushed, capped, transparent dressing, hemostatic product, antimicrobial product, securement product and aseptic technique maintained throughout procedure Post procedure x-ray: other (not applicable) Patient tolerated procedure: well Complications: none Additional comments: Right femoral central line was inserted as patient's INR was elevated to 3.8 and placing IJ central line would be putting the patient at risk for bleeding.
--- NOTE | 2022-04-18 13:51 | WPDCNINT ---
Assessment and Plan Assessment and plan (1) Septic shock: Code(s): A41.9 - Sepsis, unspecified organism; R65.21 - Severe sepsis with septic shock Status: Acute Assessment and Plan: Patient with hypotension, leukocytosis, acute kidney injury, metabolic acidosis, worsening LFTs, coagulopathy -likely related to acute cholecystitis -will give additional IV fluids -central line inserted in the right femoral vein on 04/18/2022 due to elevated INR -patient on Unasyn, will switch to imipenem and vancomycin (04/18) -may need to start Levophed to maintain MAP > than 70 mmHg for adequate end organ perfusion -patient has been started on bicarb infusion this morning (2) Acute cholecystitis: Code(s): K81.0 - Acute cholecystitis Status: Acute Assessment and Plan: Patient presented with abdominal pain, nausea, vomiting. 04/15/2022 CT scan of the abdomen and pelvis: ?Gallbladder distention with enhancing gallbladder wall and pericholecystic fluid with mild pericholecystic fatty infiltration. This constellation of findings is suspicious for acute cholecystitis.: Small amount of ascites. Fatty infiltration of the liver. 04/17/2022: MRCP - Findings consistent with acute cholecystitis. No intrahepatic or extrahepatic biliary dilatation, stone, or stricture identified although sensitivity limited by incomplete examination. Appreciate surgery and GI evaluation and recommendations -recommend percutaneous cholecystostomy tube -discussed with Dr. Mendez, updated with patient's condition, INR. He will be talking to interventional radiologist was doing procedures today and get back to me (3) LESLY (acute kidney injury): Code(s): N17.9 - Acute kidney failure, unspecified Status: Acute Assessment and Plan: Acute kidney injury most likely multifactorial severe sepsis versus shock, infection due to acute cholecystitis, possible contrast induced nephropathy -will check urine lytes -CT abdomen pelvis did not show any hydronephrosis -patient will also be given 1 L of IV fluid bolus of normal saline and Hespan bolus -will check NICOM -will place Boston catheter and monitor urine output, renal function electrolytes -nephrology following the patient (4) Hyponatremia: Code(s): E87.1 - Hypo-osmolality and hyponatremia Status: Acute Assessment and Plan: Patient is on 3% saline, Sodium level of 118 (113 on admission) -discussed with Nephrology, continue sodium bicarb infusion and hold all other IV fluids (5) Tobacco dependence: Code(s): F17.200 - Nicotine dependence, unspecified, uncomplicated Status: Chronic Assessment and Plan: Continue nicotine patch Plan DVT prophylaxis: SCDs Nutrition: Ice chips Code Status: Full code Critical Care Time Spent: 55 minutes Due to a high probability of clinically significant, life threatening deterioration, the patient required my highest level of preparedness to intervene emergently and I personally spent this critical care time directly and personally managing the patient. This critical care time included obtaining a history; examining the patient; pulse oximetry; ordering and review of studies; arranging urgent treatment with development of a management plan; evaluation of patient's response to treatment; frequent reassessment; and discussions with other providers. It was exclusive of separately billable procedures and treating other patients and teaching time. 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
[2022-04-18 13:57] LABS: Alveolar/Arterial O2 Gradient 238.8 mmHg; Base Excess ABG -16.1 mEq/l (+/-2.0); Carboxyhemoglobin 0.3 % THb (0-2.0); Fractional Inspired Oxygen 100 %; HCO3 ABG 9.1 mEq/l (22.0-26.0); Methemoglobin ABG 0.3 %THb (0-1.5); Oxygen Content ABG 18.8 %vol (16.0-22.0); Oxygen Saturation ABG 99.8 % (95.0-100.0); Oxyhemoglobin 98.6 % THb (90.0-100.0); PO2 ABG 453.1 mmHg (80.0-100.0); PO2 FiO2 Ratio Arterial Blood 4.53 %; Reduced Hemoglobin 0.8 %THb (0-5.0); Total Hemoglobin 12.7 g/dL (12.0-18.0)
[2022-04-18 13:59] LABS: PCO2 ABG 21.1 mmHg (35.0-45.0); pH ABG 7.251 (7.350-7.450)
[2022-04-18 14:00] LABS: Device NON-REBREATHER MASK; Site Drawn RIGHT BRACHIAL
[2022-04-18 14:14] LABS: Basophils Percent Auto 0.1 % (0.2-1.2); Eosinophils Absolute Auto 0.1 K/mm3 (0-0.3); Eosinophils Percent Auto 0.2 % (0-4.4); Hemoglobin 11.5 g/dL (14.0-18.0); Immature Granulocyte Absolute 0.22 K/mm3 (0.00-0.031); Immature Granulocyte Percent A 1.1 % (0-0.5); Lymphocytes Absolute Auto 0.41 K/mm3 (0.9-3.2); Mean Corpuscular HGB Conc 33.8 g/dl (32-36); Mean Corpuscular Hemoglobin 33.9 pg (26-34); Mean Corpuscular Volume 100.3 fl (80-100); Mean Platelet Volume 9.5 fl (7.4-10.4); Monocytes Absolute Auto 0.9 K/mm3 (0.1-0.6); Monocytes Percent Auto 4.1 % (2.6-8.5); Neutrophils Absolute Auto 19.2 K/mm3 (1.3-6.7); Neutrophils Percent Auto 92.5 % (45.5-73.1); Nucleated Red Blood Cells Absolute Auto 0.6 K/mm3 (0.0-0.012); Nucleated Red Blood Cells Perc 2.7 % (0.0-0.2); Platelet Count Result 212 k/mm3 (150-375); Red Blood Count 3.39 M/mm3 (4.6-6.20); Red Cell Distribution Width 17.3 % (11.5-14.5); White Blood Count 20.8 K/mm3 (4.5-10.0)
[2022-04-18] MEDS: SODIUM CHLORIDE 0.9% IV 250 ML 30 ML IV CONT (14:15)
--- NOTE | 2022-04-18 14:18 | WPDGICN ---
Assessment and Plan Assessment and plan (1) Septic shock: Code(s): A41.9 - Sepsis, unspecified organism; R65.21 - Severe sepsis with septic shock Status: Acute Assessment and Plan: just moved to icu sepsis most likely GB related, MRCP did not reveal stone also noted coagulopathy ? DIC (2) Acute cholecystitis: Code(s): K81.0 - Acute cholecystitis Status: Acute Assessment and Plan: surgery on board but noted prolonged INR may need interventional radiology for drainage, primary will try to transfer patient to tertiary hospital given acute decompensation (3) Abnormal LFTs: Code(s): R79.89 - Other specified abnormal findings of blood chemistry Status: Acute Assessment and Plan: cholecystitis and probably also component of shock liver, he is quite sick and now in icu (4) Coagulopathy: Code(s): D68.9 - Coagulation defect, unspecified Status: Acute Assessment and Plan: will get ffp and vit k ? dic (5) Chronic pain: Code(s): G89.29 - Other chronic pain Status: Acute (6) Head and neck cancer: Code(s): C76.0 - Malignant neoplasm of head, face and neck Status: Chronic (7) LESLY (acute kidney injury): Code(s): N17.9 - Acute kidney failure, unspecified Status: Acute GI Consult Note Consult date/time: 04/18/22 14:18 Reason for consult: septic shock, cholecystitis, elevated liver enzymes HPI: Travis Kirkpatrick is a 47 year old male with history of head and neck cancer 3 years ago treated with surgery and radiation therapy currently in remission, smoker, chronic pain on narcotic use. He came here with 3 weeks of progressive fatigue, also noted intermittent upper abdominal pain worse in the epigastric area. Recently also developed nausea and vomited. He finally came to ER and found to be severely hyponatremic with a sodium of 116, WBC 10,600, bilirubin of 2.3.? Chest x-ray negative.? CT scan of the abdomen and pelvis showed gallbladder distention with enhancing gallbladder wall and pericholecystic fluid, suspicious for acute cholecystitis. Today got sicked and became septic, worsening wbc 20k, also LESLY with creatinine 3, transaminases 6399-8643, elevated lipase and coagulopathy. He just was transferred to ICU. MRCP findings which were consistent acute cholecystitis, no intrahepatic or extrahepatic biliary dilatation, stone or strictures were identified. He is acutely ill. Review of Systems Constitutional: Constitutional: Reports fatigue and Reports lethargy Eyes: Eyes: Denies blurry vision ENT: Comments: h/o cancer Cardiovascular: Cardiovascular: Denies chest pain Respiratory: Respiratory: Reports dyspnea Gastrointestinal: Gastrointestinal: Reports abdominal pain and Reports nausea Integumentary/Breasts: Skin/Breast: Denies rash Neurologic: Denies Abnormal speech present Psychiatric: Psychiatric: Denies behavioral changes [facility] Past Medical History Medical History (Updated 04/19/22 @ 16:14 by Lev Mckeon MD) Chronic pain Coagulopathy Head and neck cancer History of gastrostomy tube placement Had a feeding tube for 1 year after his cancer surgery, which has subsequently been removed. Tobacco dependence Surgical History Surgical History History of neck surgery Resection of head and neck cancer with myocutaneous flap reconstruction Social History Social History Smoking packs per day: 0.5 Smoking cigarettes per day: 10.0 Smoking status: Current every day smoker Tobacco type: cigarettes Alcohol intake: never Substance use: never Spiritual care concerns: No Meds Home Medications and Allergies Home Medications Medication Instructions Recorded Confirmed Type albuterol sulfate 90 mcg/actuation 2 puff inhalation Q4-6H PRN 04/16/22 04/17/22 History aeros
--- NOTE | 2022-04-18 14:26 | PM.IMPN ---
Progress Note: A&P Assessment and Plan (1) Hyponatremia: Code(s): E87.1 - Hypo-osmolality and hyponatremia Status: Acute (2) Vomiting: Code(s): R11.10 - Vomiting, unspecified Status: Acute (3) LESLY (acute kidney injury): Code(s): N17.9 - Acute kidney failure, unspecified Status: Acute (4) Acute cholecystitis: Code(s): K81.0 - Acute cholecystitis Status: Acute (5) Abnormal LFTs: Code(s): R79.89 - Other specified abnormal findings of blood chemistry Status: Acute (6) Head and neck cancer: Code(s): C76.0 - Malignant neoplasm of head, face and neck Status: Chronic (7) Tobacco dependence: Code(s): F17.200 - Nicotine dependence, unspecified, uncomplicated Status: Chronic Plan # nausea vomiting CT abdomen revealed gallbladder distension with enhancing gallbladder wall and pericholecystic fluid with mild cold pericholecystic fatty infiltration. Constellation of findings suspicious for acute cholecystitis. There was also small amount of ascites and fatty infiltration of the liver. Elevated liver enzymes with AST/ ALT 600 to/ 378 with total bilirubin of 2.9. Alkaline phosphatase is normal. lipase is elevated as well. Likely need to rule out choledocholithiasis. Will get GI consulted. Could not do right upper quadrant ultrasound as he has been drinking water. Unable to withhold drinking due to extreme dryness of mouth. MRCP shows acute cholecystitis. General surgery has suggested cholecystostomy tube placement however with coagulopathy not able to do so. LFTs has worsened along with worsening coagulopathy and leukocytosis. Borderline blood pressure is okay likely worsening sepsis. Antibiotics switched to Zosyn for better coverage. ICU consultation # severe hyponatremia sodium level 114. Likely hypovolemic hyponatremia. Continue IV hydration. Nephrology has been consulted. Serial BMP. TSH mildly elevated at 10.2. Random cortisol 88 Started on 3% saline Nephrology appreciated slowly improving sodium level # coagulopathy give FFP and vitamin K likely due to hepatopathy likely related to sepsis # acute cholecystitis. Started on Unasyn. General surgery has been consulted. MRCPSuggest acute cholecystitis with no choledocholithiasis # abnormal LFTs right upper quadrant ultrasound. GI consulted await their recommendations. Likely related to sepsis # LESLY creatinine 1.9. Likely prerenal azotemia. Continue to monitor nephrology consulted . Baseline creatinine at 0.8 (2018). Continues to worsen. Suggested place Boston catheter in IV resuscitation as ordered and transferred to ICU. Boston issues with the patient # metabolic acidosis nephrology consulted. Will switch fluid to bicarb drip 2 amps of bicarb given earlier today # history of head and neck cancer status post resection chemotherapy radiation GI cutaneous flap reconstruction. # abnormal TSH of 10.2. May need recheck. No prior history of hypothyroidism the past # tobacco dependence nicotine patch daily. # DVT prophylaxis Heparin subQ # code status full code Discussed with ICU and at bedside critical care 30 minutes Subjective Date/time seen: 04/18/22 14:26 Interval history: HPI:This is a 47-year-old male with past medical history significant for head and neck carcinoma, status post chemotherapy, radiation, resection with myocutaneous flap reconstruction,? tobacco dependence patient is a? current everyday smoker. patient presented to emergency room for a 2nd time prior to this was the day before due to nausea and vomiting for the last 2-3 days or so with generalized body aches and pains feeling very fatigue and tired unable to keep anything down patient is limited to only liquids diet he is unable to eat any solid? except for pills after his head and neck surgery.? patient has had chills denies any cough or sputum production or shortness of breath, no
[2022-04-18 14:28] LABS: Magnesium 2.8 mg/dL (1.6-2.3)
[2022-04-18 14:30] LABS: INR 3.8; Prothrombin Time 36.4 Seconds (11.1-14.7)
[2022-04-18 14:31] LABS: Fibrinogen 227 mg/dl (215-510); Partial Thromboplastin Time 35.9 SECONDS (22.3-36.8)
[2022-04-18 14:36] LABS: Creatinine Urine 98.8 mg/dL
[2022-04-18 14:41] LABS: Ovalocytes 1+ (NORMAL); Platelet Estimate Adequate (Adequate)
[2022-04-18 14:42] LABS: Burr Cells 1+ (NORMAL)
[2022-04-18 14:42] LABS: Potassium Urine Random 43.1 meq/L; Sodium Urine Random 6 meq/L
[2022-04-18 14:48] LABS: D Dimer 12.29 ug/mL (<0.48)
[2022-04-18 14:53] LABS: Albumin Level 4.1 g/dL (3.5-5.1); Alkaline Phosphatase 98 U/L (38-126); Anion Gap 29 mmol/L (8-16); Bilirubin,Total 6.2 mg/dL (0.2-1.3); Blood Urea Nitrogen 55 mg/dL (9-20); CRP 6.8 mg/dL (<1.0); Carbon Dioxide 9 mmol/L (22-30); Chloride 81 mmol/L (98-107); Creatine Kinase 721 U/L (55-170); Estimated CRCL calculation 27 ml/min; Estimated Glomerular Filt Rate 17; Glucose 202 mg/dL (65-110); Magnesium 2.8 mg/dL (1.6-2.3); Phosphorus 8.7 mg/dL (2.5-4.5); Potassium 5.1 mmol/L (3.4-5.0); Sodium 119 mmol/L (137-145)
[2022-04-18 14:54] LABS: Lactic Acid Reflex 11.8 mmol/L (0.7-2.0)
[2022-04-18] MEDS: SODIUM CHLORIDE 0.9% IV 1,000 ML 999 ML IV CONT (14:55)
[2022-04-18] MEDS: hetaSTARCH 6%/NACL 500 ML 250 ML IV CONT (14:55)
[2022-04-18 15:24] LABS: Alanine Aminotransferase 1312 U/L (6-50); Aspartate Amino Transferase 2580 U/L (17-59); Lipase 7611 U/L (23-300)
[2022-04-18] MEDS: NOREPINEPHRINE 8 MG/D5W 250 ML 8 MG/250 ML BAG 18.75 MG IV CONT (15:45)
--- NOTE | 2022-04-18 15:52 | WPDPROCEDUR ---
Procedures Intubation Intubation Date: 04/18/22 Intubation Time: 15:40 Sedative: ketamine Mg given: 200 Laryngoscope: other (Glidescope 4) ET tube size: 7.5 Tube secured depth (cm): 23 Tube secured location: teeth Tube placement confirmation: visualized tube passing through cords, equal breath sounds bilaterally and confirmation by capnometry Patient tolerated procedure: well Intubation complications: none
[2022-04-18] MEDS: FENTANYL 2,500MCG/NS250ML(*CRX 2,500 MCG/250 ML BAG 10 MCG IV CONT (16:00)
[2022-04-18] MEDS: MIDAZOLAM 100MG/NS 100ML(*CRX) 100 MG/100 ML BAG IV CONT (16:00)
[2022-04-18] MEDS: SODIUM CHLORIDE 0.9% IV 500 ML 999 ML IV CONT (16:15)
[2022-04-18] MEDS: CENTRAL LINE FLUSH 10 ML IV PUSH ×2 (16:15→21:43)
[2022-04-18] MEDS: NOREPINEPHRINE 8 MG/D5W 250 ML 8 MG/250 ML BAG 28.13 MG IV CONT (16:15)
[2022-04-18] MEDS: ALBUMIN HUMAN 25% 25 GM/100 ML 100 ML IVPB ×2 (17:05→21:44)
[2022-04-18 17:12] LABS: Reflex Lactic Acid Yes or No Add Lactic
[2022-04-18 17:37] LABS: Alveolar/Arterial O2 Gradient 602.3 mmHg; Base Excess ABG -13.5 mEq/l (+/-2.0); Carboxyhemoglobin 0.3 % THb (0-2.0); Fractional Inspired Oxygen 100 %; HCO3 ABG 13.6 mEq/l (22.0-26.0); Methemoglobin ABG 0.4 %THb (0-1.5); Oxygen Content ABG 15.4 %vol (16.0-22.0); Oxyhemoglobin 89.3 % THb (90.0-100.0); PCO2 ABG 35.6 mmHg (35.0-45.0); PO2 ABG 75.1 mmHg (80.0-100.0); PO2 FiO2 Ratio Arterial Blood 0.75 %; Total Hemoglobin 12.2 g/dL (12.0-18.0)
[2022-04-18 17:40] LABS: Arterial Blood Gas Ventilator rate 24 /MIN; Device VENTILATOR; Modified Allen's Test Pass; Site Drawn LEFT RADIAL
[2022-04-18 17:41] LABS: Arterial Blood Gas PEEP 5 cmH2O; Arterial Blood Gas Tidal Volume 480 ml; Arterial Blood Gas Vent Mode CMV
[2022-04-18] MEDS: VASOPRESSIN INJ 100 UNITS in DEXTROSE 5% 95 ML IV CONT (17:42)
[2022-04-18 17:57] LABS: Lactic Acid 10.4 mmol/L (0.7-2.0)
[2022-04-18] MEDS: HYDROCORTISONE SODIUM SUCCINATE 100 MG/2 ML VIAL IV PUSH (20:05)
[2022-04-18] MEDS: MINERAL OIL/WHITE PETROLATUM OINTMENT 1 APPLIC EACH EYE (20:06)
[2022-04-18] MEDS: IPRATROPIUM BR 0.02% INH SOLN 0.5 MG/2.5 ML VIAL INHALATION (20:17)
[2022-04-18] MEDS: ALBUTEROL SULFATE NEB 2.5 MG/3 ML INH INHALATION (20:17)
[2022-04-18] MEDS: NOREPINEPHRINE 8 MG/D5W 250 ML 8 MG/250 ML BAG 52.5 MG IV CONT (21:59)
--- NOTE | 2022-04-18 23:32 | PC.NURSE ---
neosynephrine started as ordered for bp 89/48
[2022-04-19] VITALS (29 sets, daily range): BP systolic 89–105; BP diastolic 47–57; PULSE 81–87; RESP 17–28; TEMP 37.1–37.9; O2SAT 92–100; BMI 37.1
[2022-04-19] MEDS: ALBUTEROL SULFATE NEB 2.5 MG/3 ML INH INHALATION ×2 (02:07→08:37)
[2022-04-19] MEDS: IPRATROPIUM BR 0.02% INH SOLN 0.5 MG/2.5 ML VIAL INHALATION ×2 (02:07→08:37)
[2022-04-19] MEDS: NOREPINEPHRINE 8 MG/D5W 250 ML 8 MG/250 ML BAG 56.25 MG IV CONT ×2 (02:27→10:43)
--- NOTE | 2022-04-19 03:27 | PC.NURSE ---
0320 Dr. Pierce updated. No new orders
[2022-04-19] MEDS: ALBUMIN HUMAN 25% 25 GM/100 ML 100 ML IVPB ×2 (03:35→09:51)
[2022-04-19 04:57] LABS: Hematocrit 34.1 % (42.0-52.0); Hemoglobin 11.4 g/dL (14.0-18.0); Mean Corpuscular HGB Conc 33.4 g/dl (32-36); Mean Corpuscular Volume 101.8 fl (80-100); Mean Platelet Volume 9.9 fl (7.4-10.4); Platelet Count Result 228 k/mm3 (150-375); Red Blood Count 3.35 M/mm3 (4.6-6.20); Red Cell Distribution Width 17.6 % (11.5-14.5); White Blood Count 23.3 K/mm3 (4.5-10.0)
[2022-04-19 05:02] LABS: Alveolar/Arterial O2 Gradient 585.9 mmHg; Base Excess ABG -12.5 mEq/l (+/-2.0); Carboxyhemoglobin 0.3 % THb (0-2.0); Fractional Inspired Oxygen 100 %; HCO3 ABG 14.3 mEq/l (22.0-26.0); Methemoglobin ABG 0.5 %THb (0-1.5); Oxygen Content ABG 16.5 %vol (16.0-22.0); Oxygen Saturation ABG 95.5 % (95.0-100.0); Oxyhemoglobin 93.4 % THb (90.0-100.0); PCO2 ABG 35.9 mmHg (35.0-45.0); PO2 ABG 91.2 mmHg (80.0-100.0); PO2 FiO2 Ratio Arterial Blood 0.91 %; Reduced Hemoglobin 5.8 %THb (0-5.0); Total Hemoglobin 12.5 g/dL (12.0-18.0)
[2022-04-19 05:04] LABS: Device VENTILATOR; Site Drawn LEFT BRACHIAL; pH ABG 7.218 (7.350-7.450)
[2022-04-19 05:05] LABS: Arterial Blood Gas PEEP 8 cmH2O; Arterial Blood Gas Tidal Volume 480 ml; Arterial Blood Gas Vent Mode CMV; Arterial Blood Gas Ventilator rate 24 /MIN
[2022-04-19 05:09] LABS: INR 4.5; Prothrombin Time 41.1 Seconds (11.1-14.7)
[2022-04-19 05:11] LABS: Lactic Acid Reflex 10.8 mmol/L (0.7-2.0)
[2022-04-19 05:13] LABS: Albumin Level 4.3 g/dL (3.5-5.1); Alkaline Phosphatase 93 U/L (38-126); Anion Gap 29 mmol/L (8-16); Bilirubin,Total 8.4 mg/dL (0.2-1.3); Blood Urea Nitrogen 58 mg/dL (9-20); Calcium 7.2 mg/dL (8.4-10.2); Carbon Dioxide 14 mmol/L (22-30); Chloride 78 mmol/L (98-107); Estimated CRCL calculation 23 ml/min; Estimated Glomerular Filt Rate 15; Glucose 257 mg/dL (65-110); Magnesium 2.7 mg/dL (1.6-2.3); Phosphorus 8.1 mg/dL (2.5-4.5); Sodium 121 mmol/L (137-145)
[2022-04-19] MEDS: CENTRAL LINE FLUSH 10 ML IV PUSH (05:14)
[2022-04-19] MEDS: HYDROCORTISONE SODIUM SUCCINATE 100 MG/2 ML VIAL IV PUSH (05:14)
[2022-04-19 05:22] LABS: Lymphocytes Absolute Manual 0.23 K/mm3 (1.1-4.5); Monocytes Absolute Manual 0.23 K/mm3 (0.1-0.90); Monocytes Percent Manual 1 % (3-9); Neutrophils Percent Manual 98 % (46-73); Nucleated Red Blood Cells 5 %; Total Cells Counted 100
[2022-04-19 05:23] LABS: Acanthocytes 2+ (NORMAL); Anisocytosis 1+ (NORMAL); Ovalocytes 1+ (NORMAL); Platelet Estimate Adequate (Adequate)
[2022-04-19 06:37] LABS: Alanine Aminotransferase 1477 U/L (6-50)
[2022-04-19 06:53] LABS: Aspartate Amino Transferase 3209 U/L (17-59)
--- NOTE | 2022-04-19 07:50 | PM.PNNEP ---
Progress Note: A&P Assessment and Plan (1) Hyponatremia: Code(s): E87.1 - Hypo-osmolality and hyponatremia Status: Acute Assessment and Plan: The patient has hyponatremia. The patient has several risk factors for hyponatremia. He had head and neck cancer although this is in remission. He is taking narcotics every day for his chronic pain. He is on a high liquid diet because he cannot swallow solids. He looks like he might be dehydrated. He has acute kidney injury TSH is mildly elevated His sodium has corrected from 113-117 for the 1st 24hours and to 121 today. Will continue the isotonic IV fluids. Check another sodium at noon (2) Vomiting: Code(s): R11.10 - Vomiting, unspecified Status: Acute Assessment and Plan: Surgery saw the patient. He has acute cholecystitis. Cholecystostomy tube was placed yesterday afternoon. (3) LESLY (acute kidney injury): Code(s): N17.9 - Acute kidney failure, unspecified Status: Acute Assessment and Plan: The patient has LESLY. Urine electrolytes are pre renal. CT shows no obstruction. Urine sodium is low. So there is a component of dehydration. He received 3L of fluid yesterday afternoon upon moving to the ICU but still urine output is low. Not chest x-ray shows bilateral infiltrates. This is probably ATN from the cholecystitis and contrast. The patient has severe metabolic acidosis. His anion gap is very high at 29. His lactate level is 10.8. He was started on a bicarb drip and received 2 amps of bicarb yesterday at about noon and continues to get a bicarb drip. His bicarbonate level is now up to 14. Discussed with Dr. Pierce He is now on 3 pressors and his systolic is still only 98. I agree that he is going to need CRRT because of his acidosis plus rising BUN creatinine and minimal urine output. Dr. Pierce is working on transferring him to a facility that has this. (4) Head and neck cancer: Code(s): C76.0 - Malignant neoplasm of head, face and neck Status: Chronic Assessment and Plan: No evidence of disease per his oncologists. (5) Tobacco dependence: Code(s): F17.200 - Nicotine dependence, unspecified, uncomplicated Status: Chronic Assessment and Plan: He was smoking up until the time he was admitted. Hopefully he will stop. (6) Chronic pain: Code(s): G89.29 - Other chronic pain Status: Acute Assessment and Plan: He is on routine narcotics at home. Plan above Subjective Date/time seen: 04/19/22 07:50 Interval history: Patient decompensated yesterday afternoon. Required intubation and moved to the ICU. He is sedated and cannot give a history. Case discussed with Dr. Pierce Review of Systems Review of Systems: ROS unobtainable: Yes unobtainable due to medical condition Exam Narrative: WDWN male intubated and sedated in intensive care unit skin no rash head ncat lungs coarse bilaterally cor reg no rub or gallop abd BS+ but hypoactive and soft ext 1+ edema. Objective Data Vital Signs Vital Signs: Vital Signs - 24 hr 04/18/22 08:00 04/18/22 08:00 04/18/22 08:00 Temperature 36.2 C L Pulse Rate 73 73 73 Respiratory Rate 20 20 Blood Pressure 102/54 L Pulse Oximetry 100 Oxygen Delivery Room Air Oxygen Flow Rate Fraction of Inspired Oxygen 04/18/22 10:00 04/18/22 12:00 04/18/22 14:11 Temperature 35.9 C L 34.8 C L Pulse Rate 78 76 76 Respiratory Rate 20 20 Blood Pressure 96/48 L 93/52 L Pulse Oximetry 90 Oxygen Delivery Oxygen Flow Rate Fraction of Inspired Oxygen 04/18/22 14:33 04/18/22 14:41 04/18/22 14:44 Temperature 34.7 C L 34.8 C L 34.7 C L Pulse Rate 76 76 76 Respiratory Rate 17 18 17 Blood Pressure 92/57 L 97/54 L 97/54 L Pulse Oximetry Oxygen Delivery Oxygen Flow Rate Fraction of Inspired Oxygen
[2022-04-19 07:55] LABS: Reflex Lactic Acid Yes or No Add Lactic
[2022-04-19] MEDS: MINERAL OIL/WHITE PETROLATUM OINTMENT 1 APPLIC EACH EYE (08:28)
--- NOTE | 2022-04-19 08:33 | WPDINTPN ---
Progress Note: A&P Assessment and Plan (1) Septic shock: Code(s): A41.9 - Sepsis, unspecified organism; R65.21 - Severe sepsis with septic shock Status: Acute Assessment and Plan: Patient with hypotension, leukocytosis, acute kidney injury, metabolic acidosis, worsening LFTs, coagulopathy -likely related to acute cholecystitis -patient has been adequately fluid-resuscitated in the ICU -central line inserted in the right patient has been adequately femoral vein on 04/18/2022 due to elevated INR -Currently on imipenem and vancomycin (04/18) -04/17/2022: Blood cultures growing Gram-negative bacilli -04/18/2022: Percutaneous cholecystostomy was performed, cultures have been sent and pending -patient currently on Levophed, vasopressin, Gio-Synephrine, maintain MAP > 70 mmHg for adequate end organ perfusion -patient is anuric with increasing creatinine -lactic acid is also elevated at 10.8, likely secondary to decreased clearance due to liver and renal dysfunction -remains on bicarb infusion for maintenance fluids (2) Acute cholecystitis: Code(s): K81.0 - Acute cholecystitis Status: Acute Assessment and Plan: Patient presented with abdominal pain, nausea, vomiting. 04/15/2022 CT scan of the abdomen and pelvis: ?Gallbladder distention with enhancing gallbladder wall and pericholecystic fluid with mild pericholecystic fatty infiltration. This constellation of findings is suspicious for acute cholecystitis.: Small amount of ascites. Fatty infiltration of the liver. 04/17/2022: MRCP - Findings consistent with acute cholecystitis. No intrahepatic or extrahepatic biliary dilatation, stone, or stricture identified although sensitivity limited by incomplete examination. Appreciate surgery and GI evaluation and recommendations -04/18/2022 percutaneous cholecystostomy with ultrasound guidance was performed by Interventional Radiology, bile was sent for culture and pending results (3) LESLY (acute kidney injury): Code(s): N17.9 - Acute kidney failure, unspecified Status: Acute Assessment and Plan: Acute kidney injury most likely multifactorial severe sepsis versus shock, infection due to acute cholecystitis, possible contrast induced nephropathy -urine lytes reflective of prerenal, but he was hyponatremic -CT abdomen pelvis did not show any hydronephrosis -patient was adequately fluid resuscitated in the ICU - NICOM did not show that he was of fluid responder -continue sodium bicarb infusion -continue to monitor urine output, renal function electrolytes -discussed with Nephrology patient will require CRRT in that he is on 3 vasopressors, refractory acidosis, worsening renal function/uremia (4) Hyponatremia: Code(s): E87.1 - Hypo-osmolality and hyponatremia Status: Acute Assessment and Plan: Sodium level of 121 (113 on admission) status post 3% saline -currently on sodium bicarb infusion (5) Tobacco dependence: Code(s): F17.200 - Nicotine dependence, unspecified, uncomplicated Status: Chronic Assessment and Plan: Patient will require nicotine patch once he is extubated Plan DVT prophylaxis: SCDs, elevated INR Nutrition: NPO Called [facility], pt has been accepted but they do not have any bed availability at this time and will call once bed opens up. Called [facility], patient was accepted at [facility]. Code Status: Full code Critical Care Time Spent: 47 minutes Due to a high probability of clinically significant, life threatening deterioration, the patient required my highest level of preparedness to intervene emergently and I personally spent this critical care time directly and personally managing the patient. This critical care time included obtaining a history; examining the patient; pulse oximetry; ordering and review of studies; arranging urgent treatment with development of a management plan; evaluation of pat
[2022-04-19] MEDS: PHYTONADIONE ADULT INJ 10 MG in DEXTROSE 5% IN WATER 50 ML 100 MG IVPB (09:57)
[2022-04-19 10:24] LABS: Lactic Acid 12.4 mmol/L (0.7-2.0)
[2022-04-19 10:40] LABS: SARS-CoV-2 RNA PCR Negative
--- NOTE | 2022-04-19 11:00 | PC.NURSE ---
Report given to [facility]. Gina Giron RN. [facility] called for patient transport.
--- NOTE | 2022-04-19 13:06 | PM.TDS ---
Transfer Discharge Sum: Prov Provider Date of admission: 04/17/22 08:44 Primary care physician: Jerome Buck MD Admitting clinician: Jerod Callahan MD Consults: 04/17/22 Consult to Dietitian Routine Reason for Consult:: patient only able to drink thin liquids. Consult to Physician Routine Comment: ER MD spoke with Dr. Hall Consulting Provider: Justice Hall home health care coordinator/MD group to consult: Reason for consultation: hyponatremia Has provider been notified: Yes Consult to Physician Routine Comment: Spoke with Cat staley Consulting Provider: Brigitte Huerta home health care coordinator/MD group to consult: Surgery Reason for consultation: Cholecystitis Has provider been notified: Yes 04/17/22 08:57 Consult to Physician Routine Comment: Consulting Provider: Lev Mckeon home health care coordinator/MD group to consult: gastroenterology Reason for consultation: elevated liver enzymes Has provider been notified: Yes 04/18/22 Consult to Physician Routine Comment: Consulting Provider: June Pierce Reason for consultation: icu transfer Has provider been notified: Yes Consult to Physician Routine Comment: spoke to Harriet in GI [id number],) Consulting Provider: Lev Mckeon home health care coordinator/MD group to consult: Brandi VENTURA Reason for consultation: elevated LFTs Has provider been notified: Yes DS: Admitting Diagnosis Discharge Date April 19, 2022 Admitting Diagnosis Nausea with emesis DS: Discharge Diagnosis Discharge Diagnosis (1) Septic shock: Code(s): A41.9 - Sepsis, unspecified organism; R65.21 - Severe sepsis with septic shock Status: Acute Assessment and Plan: Patient with hypotension, leukocytosis, acute kidney injury, metabolic acidosis, worsening LFTs, coagulopathy -likely related to acute cholecystitis -patient has been adequately fluid-resuscitated in the ICU -central line inserted in the right patient has been adequately femoral vein on 04/18/2022 due to elevated INR -Currently on imipenem and vancomycin (04/18) -04/17/2022: Blood cultures growing Gram-negative bacilli -04/18/2022: Percutaneous cholecystostomy was performed, cultures have been sent and pending -patient currently on Levophed, vasopressin, Gio-Synephrine, maintain MAP > 70 mmHg for adequate end organ perfusion -patient is anuric with increasing creatinine -lactic acid is also elevated at 10.8, likely secondary to decreased clearance due to liver and renal dysfunction -remains on bicarb infusion for maintenance fluids (2) Acute cholecystitis: Code(s): K81.0 - Acute cholecystitis Status: Acute Assessment and Plan: Patient presented with abdominal pain, nausea, vomiting. 04/15/2022 CT scan of the abdomen and pelvis: ?Gallbladder distention with enhancing gallbladder wall and pericholecystic fluid with mild pericholecystic fatty infiltration. This constellation of findings is suspicious for acute cholecystitis.: Small amount of ascites. Fatty infiltration of the liver. 04/17/2022: MRCP - Findings consistent with acute cholecystitis. No intrahepatic or extrahepatic biliary dilatation, stone, or stricture identified although sensitivity limited by incomplete examination. Appreciate surgery and GI evaluation and recommendations -04/18/2022 percutaneous cholecystostomy with ultrasound guidance was performed by Interventional Radiology, bile was sent for culture and pending results (3) LESLY (acute kidney injury): Code(s): N17.9 - Acute kidney failure, unspecified Status: Acute Assessment and Plan: Acute kidney injury most likely multifactorial severe sepsis versus shock, infection due to acute cholecystitis, possible contrast induced nephropathy -urine lytes reflective of prerenal, but he was hyponatremic -CT abdomen pelvis did not show any hydronephrosis -patient was adequately fluid resuscitated in the ICU - NICOM did not show that he was of fluid respon
[2022-04-20 11:07] LABS: Osmolality, Urine 326 mOsm/kg (50-1200)
[2022-04-20 12:29] LABS: Kappa\\Lambda Light Chains 1.33 (0.26-1.65); Lambda Light Chain 32.1 mg/L (5.7-26.3)
[2022-04-20 21:04] LABS: Alpha 1 Globulin 0.3 g/dL (0.2-0.3); Alpha 2 Globulin 0.7 g/dL (0.5-0.9); Beta 1 Globulin 0.4 g/dL (0.4-0.6); Gamma Globulin 0.9 g/dL (0.8-1.7); Protein, Total 6.6 g/dL (6.1-8.1)
[2022-04-22 14:31] LABS: Chloride Rand Ur <20 mmol/L (32-290); Creatinine Random Urine 88 mg/dL (20-320)
[2022-04-23 14:44] LABS: Total Protein/Creatinine Ratio 232 mg/g creat (22-128)
== END 2022-04-19 12:10 | disposition short-term general hospital (02) | DRG 640 ==
LOC: ANHED 22:23 → ANHIMU 23:28 → ANHICU 04-18 12:58
PROVIDERS: Internal Medicine; Internal Medicine Nephrology; Nurse Practitioner Family; Admitting Provider Internal Medicine; Emergency Provider Preventive Medicine Aerospace Medicine; PCP Internal Medicine; Visit Provider Student in an Organized Health Care Education/Training Program
DX: E87.1 Hypo-osmolality and hyponatremia (principal); A41.59 Other Gram-negative sepsis; R65.21 Severe sepsis with septic shock; K81.0 Acute cholecystitis; N17.9 Acute kidney failure, unspecified; E87.2 Acidosis; R09.02 Hypoxemia; I87.2 Venous insufficiency (chronic) (peripheral); T50.8X1A Poisoning by diagnostic agents, accidental (unintentional), initial encounter; N14.4 Toxic nephropathy, not elsewhere classified; N14.1 Nephropathy induced by other drugs, medicaments and biological substances; Z20.822 Contact with and (suspected) exposure to COVID-19; E66.9 Obesity, unspecified; F17.210 Nicotine dependence, cigarettes, uncomplicated; G89.29 Other chronic pain; R05.3 Chronic cough; R79.89 Other specified abnormal findings of blood chemistry; Z86.718 Personal history of other venous thrombosis and embolism; Z79.891 Long term (current) use of opiate analgesic; Z92.3 Personal history of irradiation; Z92.21 Personal history of antineoplastic chemotherapy; Z85.828 Personal history of other malignant neoplasm of skin
CPT/HCPCS: 31500; 36415; 36430; 36600; 47490; 71045; 71046; 74018; 74177; 74183; 76376; 80048; 80053; 80069; 80074; 80076; 81001; 82140; 82247; 82375; 82436; 82533; 82550; 82570; 82805; 83050; 83605; 83690; 83735; 83883; 83930; 83935; 84100; 84133; 84155; 84156; 84165; 84166; 84295; 84300; 84439; 84443; 84450; 84460; 84480; 84540; 85025; 85380; 85384; 85610; 85730; 86140; 86850; 86900; 86901; 87040; 87070; 87075; 87077; 87205; 93005; 94002; 94003; 94640; 96360; 96365; 96375; 99284; 99285; A9270; C1729; C9803; G0378; J0295; J0743; J1170; J1644; J1720; J2250; J2270; J2370; J2405; J3010; J3370; J3430; J7030; J7040; J7050; J7060; J7070; J7131; P9017; P9047; Q9967; U0003; U0005